=== PATIENT | male | born 1975 | race Caucasian/White ===

== ENCOUNTER 2017-11-19 12:06 | Observation (INO) ==
--- NOTE | 2017-11-19 12:29 | Emergency Department Note ---
Disposition Clinical Impression: Acute kidney injury, Nausea vomiting and diarrhea, Lightheaded Alcohol withdrawal Qualifiers: Complication of substance-induced condition: uncomplicated Qualified Code(s): F10.230 - Alcohol dependence with withdrawal, uncomplicated Disposition: Admitted As Inpatient Condition: Fair Referrals: Rebecca Rowley DO [Primary Care Provider] - Forms: ED Satisfaction Letter Time of Disposition: 13:32 Nausea/Vomiting/Diarrhea HPI - General Chief complaint: ED Nausea/Vomiting/Diarrhea Stated complaint: Vomiting Time Seen by Provider: 11/19/17 12:20 Source: patient Mode of arrival: ambulatory Limitations: no limitations Nursing Notes Reviewed: Yes Vital Signs Reviewed: Yes - History of Present Illness HPI Narrative: Patient reports nonbloody nausea, vomiting, diarrhea for the past 3 weeks. This started after he abruptly ceased from drinking alcohol. Previously he had drank 1-2 cases of beer daily. He now feels lightheaded, dizzy, near syncopal over the past several days. He admits to snorting a line of methamphetamine and cocaine several days ago. He denies fevers, chest pain, abdominal pain. No recent antibiotic use. He did have recent surgery on his right upper extremity for a tendon injury. - Related Data Home Medications Medication Instructions Recorded Confirmed Lisinopril 20 mg PO DAILY 03/18/15 11/09/17 Claritin 10 mg PO DAILY 04/26/17 11/09/17 Omeprazole 20 mg PO DAILY 04/26/17 11/09/17 Acetaminophen [Tylenol Arthritis] 1 tab PO PRN PRN 11/09/17 11/09/17 Cyclobenzaprine [Flexeril] 5 mg PO PRN PRN 11/09/17 11/09/17 Diclofenac Sodium [Voltaren] 1 tab PO BID 11/09/17 11/09/17 Gabapentin [Neurontin] 1 cap PO TID 11/09/17 11/09/17 Allergies Allergy/AdvReac Type Severity Reaction Status Date / Time morphine Allergy Anaphylaxis Verified 11/19/17 12:10 aspirin [ASA] AdvReac See Verified 11/19/17 12:10 Comments All systems ED: reviewed and negative except as stated. Constitutional: Reports: as per HPI Eyes: Reports: as per HPI ENT ED: Reports: as per HPI Cardiovascular: Reports: other (dizzy, lightheaded) Respiratory: Reports: as per HPI Gastrointestinal: Reports: nausea, vomiting, diarrhea Genitourinary: Reports: as per HPI Musculoskeletal: Reports: as per HPI Integumentary: Reports: as per HPI Neurological: Reports: as per HPI Psychiatric: Reports: as per HPI Endocrine: Reports: as per HPI Hematological/Lymphatic: Reports: as per HPI Allergic/Immunologic: Reports: as per HPI Past Medical History - Past Medical History Source: patient Medical history: Reports: arthritis, GERD, hypertension Surgical history: Reports: cholecystectomy, herniorrhaphy, other Psychiatric history: Reports: no psych history - Social History Smoking Status: Never smoker Smokeless Tobacco Status: No Alcohol use: Reports: occasionally, heavy Drug use: Reports: cocaine, methamphetamine Physical Exam Talkative, in no apparent distress - General Limitations: no limitations General appearance: alert, in no apparent distress - Head Head exam: atraumatic - Eye Eye exam: Present: normal appearance - ENT ENT exam: normal exam - Neck Neck exam: Present: normal inspection, full ROM - Chest Chest inspection: Present: normal inspection, symmetric chest wall rise - Respiratory Respiratory exam: Present: normal lung sounds bilaterally - Cardiovascular Cardiovascular exam: Present: normal rhythm, tachycardia, normal heart sounds - Abdominal Exam Abdominal exam: Present: soft, Non-Tender, normal bowel sounds - Rectal Exam Rectal exam: Present: deferred - Extremities Exam Extremities exam: Present: other (Right upper extremity in sling. Distal right upper extremity in cast) - Neurological Exam Neurological exam: Present: alert, oriented X3, CN II-XII intact - Psychiatric Psychiatric exam: Present: normal affect, normal mood - Skin Skin exam: Present: warm, dry, intact Course Course Narrative: Patient presents with nausea vomiting and diarrhea 3 weeks duration that coincided in onset when he stopped drinking beer heavily. He also lightheaded and dizzy. She has a benign exam. No abdominal tenderness. I am concerned about subacute alcohol withdrawal. Laboratory investigation initiated - Reevaluation(s) Reevaluation #1: The patient has an acute kidney injury and leukocytosis. I have provided IV hydration. I will request admission to the medicine service Vital Signs Temperature 98.4 F 11/19/17 12:10 Pulse Rate 127 11/19/17 12:10 Respiratory Rate 20 11/19/17 12:10 Blood Pressure 128/72 11/19/17 12:10 O2 Sat by Pulse Oximetry 95 11/19/17 12:10 Temperature 98.4 F 11/19/17 12:20 Pulse Rate 127 11/19/17 12:20 Respiratory Rate 20 11/19/17 12:20 Blood Pressure 128/72 11/19/17 12:20 O2 Sat by Pulse Oximetry 95 11/19/17 12:20 Oxygen Delivery Oxygen Delivery Room Air Nausea/Vomiting/Diarrhea - Lab Data Lab results reviewed: Yes I reviewed the patient's lab results. Result diagrams: 11/19/17 12:33 11/19/17 12:33 Lab Results 11/19/17 11/19/17 11/19/17 Range/Units 12:33 12:33 12:33 WBC 18.5 H (4.3-11.1) K/mcL RBC 5.73 H (4.19-5.50) M/mcL Hgb 17.1 H (12.9-16.9) g/dL Hct 49.4 (37.5-50.1) % MCV 86.2 (83.0-100.0) fL MCH 29.8 (28.0-33.3) pg MCHC 34.6 (31.6-35.5) g/dL RDW 14.1 (11.5-14.5) % Plt Count 426 H (140-400) K/mcL MPV 9.7 (9.4-12.4) fL Immature Gran % 0.9 (0-4) % Seg Neutrophils % 64.3 % Lymphocytes % 20.8 % Monocytes % 13.3 % Eosinophils % 0.3 % Basophils % 0.4 % Neutrophils # 11.9 H (1.6-8.9) K/mcL Lymphocytes # 3.9 (0.6-4.6) K/mcL Monocytes # 2.5 H (0.0-1.3) K/mcL Eosinophils # 0.1 (0.0-0.6) K/mcL Basophils # 0.1 (0.0-0.2) K/mcL Sodium 136 (136-145) mEq/L Potassium 4.4 (3.5-5.1) mEq/L Chloride 101 (98-107) mEq/L Carbon Dioxide 21 L (23-29) mEq/L BUN 26 H (6-20) mg/dL Creatinine 1.60 H (0.70-1.30) mg/dL Est GFR ( Amer) 58 L (> 60) Est GFR (Non-Af Amer) 48 L (> 60) BUN/Creatinine Ratio 16 (6-26) Glucose 114 H (70-105) mg/dL Calculated Osmolality 288 (280-300) Calcium 10.5 H (8.6-10.3) mg/dL Magnesium 2.4 (1.6-2.6) mg/dL Total Bilirubin 1.5 H (0.3-1.0) mg/dL AST 23 (13-39) Units/L ALT 56 H (7-52) Units/L Alkaline Phosphatase 20 L (34-104) Units/L Serum Total Protein 8.2 (6.4-8.9) g/dL Albumin 5.0 (3.5-5.7) g/dL Globulin 3.2 (2.4-3.5) g/dL Albumin/Globulin Ratio 1.6 (1.1-2.2) TSH 3.424 (0.340-5.600) mcIU/mL Ur Drug Screen Interp Ethyl Alcohol < 10 (Less than 10) mg/dL 11/19/17 Range/Units 13:05 WBC (4.3-11.1) K/mcL RBC (4.19-5.50) M/mcL Hgb (12.9-16.9) g/dL Hct (37.5-50.1) % MCV (83.0-100.0) fL MCH (28.0-33.3) pg MCHC (31.6-35.5) g/dL RDW (11.5-14.5) % Plt Count (140-400) K/mcL MPV (9.4-12.4) fL Immature Gran % (0-4) % Seg Neutrophils % % Lymphocytes % % Monocytes % % Eosinophils % % Basophils % % Neutrophils # (1.6-8.9) K/mcL Lymphocytes # (0.6-4.6) K/mcL Monocytes # (0.0-1.3) K/mcL Eosinophils # (0.0-0.6) K/mcL Basophils # (0.0-0.2) K/mcL Sodium (136-145) mEq/L Potassium (3.5-5.1) mEq/L Chloride (98-107) mEq/L Carbon Dioxide (23-29) mEq/L BUN (6-20) mg/dL Creatinine (0.70-1.30) mg/dL Est GFR ( Amer) (> 60) Est GFR (Non-Af Amer) (> 60) BUN/Creatinine Ratio (6-26) Glucose (70-105) mg/dL Calculated Osmolality (280-300) Calcium (8.6-10.3) mg/dL Magnesium (1.6-2.6) mg/dL Total Bilirubin (0.3-1.0) mg/dL AST (13-39) Units/L ALT (7-52) Units/L Alkaline Phosphatase (34-104) Units/L Serum Total Protein (6.4-8.9) g/dL Albumin (3.5-5.7) g/dL Globulin (2.4-3.5) g/dL Albumin/Globulin Ratio (1.1-2.2) TSH (0.340-5.600) mcIU/mL Ur Drug Screen Interp See Below Ethyl Alcohol (Less than 10) mg/dL - EKG Data EKG attestation: Yes I reviewed and interpreted this EKG. EKG results narrative: Normal sinus rhythm rate 99 NE 134 QRS 79 QT/QTC 312/368. No acute ST segment elevation
[2017-11-19] MEDS ORDERED: Thiamine (B-1) 100 MG, Folic Acid 1 MG, MVI, adult with vitamin K 10 ML in 0.9 % Sodi... IVPB SCH (12:30)
[2017-11-19 12:47] LABS: Basophils # 0.1 K/mcL (0.0-0.2); Basophils % 0.4 %; Eosinophils # 0.1 K/mcL (0.0-0.6); Eosinophils % 0.3 %; Hematocrit 49.4 % (37.5-50.1); Hemoglobin 17.1 g/dL (12.9-16.9); Immature Granulocytes % 0.9 % (0-4); Lymphocytes # 3.9 K/mcL (0.6-4.6); Lymphocytes % 20.8 %; Mean Corpuscular HGB Conc 34.6 g/dL (31.6-35.5); Mean Corpuscular Hemoglobin 29.8 pg (28.0-33.3); Mean Corpuscular Volume 86.2 fL (83.0-100.0); Mean Platelet Volume 9.7 fL (9.4-12.4); Monocytes # 2.5 K/mcL (0.0-1.3); Monocytes % 13.3 %; Neutrophils # 11.9 K/mcL (1.6-8.9); Platelet Count 426 K/mcL (140-400); Red Blood Count 5.73 M/mcL (4.19-5.50); Red Cell Distribution Width 14.1 % (11.5-14.5); Segmented Neutrophils % 64.3 %
[2017-11-19 13:07] LABS: Alanine Aminotransferase 56 Units/L (7-52); Albumin/Globulin Ratio 1.6 (1.1-2.2); Alkaline Phosphatase 20 Units/L (34-104); Aspartate Amino Transferase 23 Units/L (13-39); BUN/Creatinine Ratio 16 (6-26); Bilirubin,Total 1.5 mg/dL (0.3-1.0); Blood Urea Nitrogen 26 mg/dL (6-20); Calcium 10.5 mg/dL (8.6-10.3); Carbon Dioxide 21 mEq/L (23-29); Chloride 101 mEq/L (98-107); Ethanol < 10 mg/dL (Less than 10); Globulin 3.2 g/dL (2.4-3.5); Glucose 114 mg/dL (70-105); Osmolality,Calculated 288 (280-300); Potassium 4.4 mEq/L (3.5-5.1); Sodium 136 mEq/L (136-145); Total Protein 8.2 g/dL (6.4-8.9); eGFR For African Americans 58 (> 60); eGFR For Non-African Americans 48 (> 60)
[2017-11-19 13:19] LABS: Thyroid Stimulating Hormone 3.424 mcIU/mL (0.340-5.600)
[2017-11-19 13:23] LABS: Bilirubin,Urine Small (Negative); Blood,Urine Negative (Negative); Clarity,Urine Clear (Clear); Color,Urine Dark Yellow (Yellow); Glucose,Urine (UA) Normal (Normal); Ketones,Urine 15 mg/dL (Negative); Leukocyte Esterase,Urine Negative (Negative); Nitrite,Urine Negative (Negative); PH,Urine 6.5 pH Units (5.0-8.0); Protein,Urine 100 mg/dL (Neg-Trace); Specific Gravity,Urine 1.021 (1.010-1.025); Urobilinogen,Urine Normal (Normal)
[2017-11-19 13:25] LABS: Bacteria,Urine None Seen per hpf (None-Few); Squamous Epithelial Cell,Urine Many per lpf (None-Few)
[2017-11-19] MEDS ORDERED: 0.9 % Sodium Chloride 1,000 ML IVC ONE (13:30)
[2017-11-19 13:39] LABS: Amphetamine Screen,Urine Positive ng/mL (Cutoff=1000); Barbiturate Screen,Urine Negative ng/mL (Cutoff=200); Benzodiazepines Screen,Urine Negative ng/mL (Cutoff=200); Cannabinoid Screen,Urine Negative ng/mL (Cutoff = 50); Cocaine Screen,Urine Negative ng/mL (Cutoff= 300); Opiate Screen,Urine Negative ng/mL (Cutoff=300); Phencyclidine Screen,Urine Negative ng/mL (Cutoff=25)
[2017-11-19 13:56] LABS: Creatine Kinase 203 Units/L (30-223)
[2017-11-19] MEDS ORDERED: Naloxone 0.4 MG/ML INJ IVP PRN (14:03)
--- NOTE | 2017-11-19 14:53 | Internal Med History&Physical ---
Date of Encounter: 11/19/17 Time of Encounter: 14:30 Internal Medicine - H&P: HPI Chief complaint: Nausea, vomiting Admitted From: Emergency Dept Plans for Post Hospital Care: Home History of present illness: Mr. Oshea is a 42 year old male patient with history of hypertension, gout, prior history of alcohol abuse who quit drinking 3 weeks back presented to the ER with complaints of nausea and vomiting. Symptoms have been going on for 2-3 weeks now ever since he quit drinking alcohol. She denies any fevers or chills. Does have mild epigastric discomfort. He is also been having diarrhea. No fever or chills reported. No hematemesis or melena. He does have lightheadedness and has been seeing black spots this morning. Past Med Surg Social Fam HX - Past Medical History Attestation: Yes The following information was validated with the patient. Source: patient Medical history: arthritis, GERD, hypertension Additional medical history: gout Psychiatric history: no psych history - Past Surgical History Surgical History: cholecystectomy, herniorrhaphy, other Additional surgical history: tonsillectomy. Right Arm Surgery - Social History Smoking Status: Never smoker Smokeless Tobacco Status: No Alcohol use: occasionally, heavy Drug use: cocaine, methamphetamine Internal Medicine - H&P: Meds Allopurinol [Zyloprim 100 MG] 100 mg PO TID 11/19/17 [History] Capsaicin [Arthritis Pain Relief] 1 appl TP DAILY PRN 11/19/17 [History] Cyclobenzaprine HCl 5 mg PO TID PRN 11/19/17 [History] Diclofenac Sodium [Voltaren] 75 mg PO BID 11/19/17 [History] Gabapentin [Neurontin] 300 mg PO TID 11/19/17 [History] 3 Allergy/AdvReac Type Severity Reaction Status Date / Time morphine Allergy Anaphylaxis Verified 11/19/17 13:51 aspirin [ASA] AdvReac See Verified 11/19/17 12:10 Comments All Systems PM: A 10-system review of systems was performed and is negative for pertinent findings except as documented above in the HPI. - Constitutional Constitutional: no chills, no fever(s), no night sweats - EENT Eyes: no change in vision, no discharge, no pain, no photophobia Ears: no ear discharge, no ear pain, no tinnitus Nose, mouth and throat: no dysphagia, no nasal discharge, no neck pain, no sore throat - Cardiovascular Cardiovascular ROS IM: lightheadedness, no chest pain, no diaphoresis, no dyspnea, no palpitations, no syncope - Respiratory Respiratory: no cough, no dyspnea, no wheezing, no excessive phlegm production - Gastrointestinal Gastrointestinal: abdominal pain, nausea, vomiting - Musculoskeletal Musculoskeletal ROS IM: no numbness, no tingling - Integumentary Integumentary IM: no rash, no unusual bruising - Neurological Neurological ROS: no confusion, no convulsions, no focal weakness, no numbness, no tingling, no tremor(s) - Constitutional Vitals: Temp Pulse Resp BP Pulse Ox 98.4 F 127 20 128/72 95 11/19/17 12:20 11/19/17 12:20 11/19/17 12:20 11/19/17 12:20 11/19/17 12:20 General appearance: Present: cooperative, mild distress, A&O X 3, answers questions appropriately - Neck Neck exam general surgery: Present: supple, trachea midline. Absent: lymphadenopathy - Respiratory Respiratory exam: Present: CTAB. Absent: accessory muscle use, rales, rhonchi, wheezes - Cardiovascular Cardiovascular exam: Present: RRR, +S1, +S2. Absent: diastolic murmur, gallop, rubs, systolic murmur - GI/Abdominal GI/Abdominal exam: Present: normal bowel sounds, soft, tenderness (Epigastric), no peritoneal signs. Absent: distended - Extremities Exam Extremities exam: Present: warm, radial pulses palpable and symmetrical. Absent : calf tenderness, cyanotic, pedal edema - Neurological Exam Neurological exam: Present: CN II-XII intact, oriented X3, no focal deficits. Absent: facial droop, speech deficit - Psychiatric Psychiatric exam: Present: anxious Additional comments: Patient has pressured speech - Skin Skin exam: Present: dry, intact Internal Med - H&P Results - Labs CBC & Chem 7: 11/19/17 12:33 11/19/17 12:33 - Assessment and plan (1) Acute kidney injury Current Visit: Yes Status: Acute Assessment and plan: Patient with acute kidney injury. Likely related to prerenal losses due to nausea or vomiting and diarrhea. We will treat with IV fluids. Follow renal function closely. Patient was on diclofenac at home. Will stop this medication for now. Moderate risk for complications. Patient does have pressured speech. An urine drug screen positive for amphetamines. (2) History of alcohol abuse Current Visit: Yes Status: Acute Assessment and plan: Patient with history of alcohol abuse. Quit drinking alcohol 3 weeks back. We will check phosphorus levels. Supportive care with thiamine and folic acid. (3) Nausea vomiting and diarrhea Current Visit: Yes Status: Acute Assessment and plan: Intractable nausea and vomiting along with diarrhea. Uncertain etiology. Could be related to alcoholic gastritis. Given the outbreak of hepatitis A in this area, we will check for hepatitis viral panel. Treat symptomatically with antiemetics. If symptoms do not improve, we will consult GI for possible upper GI endoscopy. - Time Spent With Patient Total time spent is greater than 50% in coordination of care (as documented) at patient's floor/unit and/or counseling patient:
[2017-11-19] MEDS ORDERED: Methyl Salicylate/Menthol 28 GM TUBE TP PRN (15:00)
[2017-11-19] MEDS ORDERED: Ondansetron 4 MG/2 ML VIAL IVP PRN (15:00)
[2017-11-19 15:50] LABS: Phosphorous 4.8 mg/dL (2.7-4.5)
[2017-11-19 16:08] LABS: Hepatitis A Antibody IgM Nonreactive (Nonreactive); Hepatitis B Core IgM Nonreactive (Nonreactive); Hepatitis B Surface Antigen Nonreactive (Nonreactive); Hepatitis C Virus Antibody Nonreactive (Nonreactive)
[2017-11-19] MEDS: Gabapentin 300 MG CAPSULE PO SCH ×2 (16:11→22:22)
[2017-11-19] MEDS: Pantoprazole 40 MG VIAL IVP SCH (16:11)
[2017-11-19] MEDS ORDERED: *HR* LORazepam 2 MG/ML VIAL IVP PRN ×3 (16:38)
[2017-11-19] MEDS: Ringers Solution, Lactated 1,000 ML IVC SCH (17:46)
[2017-11-19] MEDS: *HR* Heparin 5,000 UNIT/ML VIAL SQ SCH (17:51)
--- NOTE | 2017-11-19 19:06 | Orthopedics Progress Note ---
Date of Encounter: 11/19/17 Time of Encounter: 19:02 Subjective Principal diagnosis: Right wrist scapholunate ligament tear, carpal tunnel syndrome Interval history: Patient admitted for alcohol withdrawal symptoms It was reported the patient was having numbness in his right hand Patient reports no complaints currently Short arm thumb spica cast is fitting well, the cast was not too tight Minimal swelling of digits He has good motion of the fingers Sensation intact to tips of all digits with good capillary refill Postoperative day #10 status post a right wrist scapholunate ligament repair, and an endoscopic carpal tunnel release No intervention at this time Discussed with the patient to make sure to keep hand elevated to prevent swelling Continue moving fingers Follow-up in office next week with Arlene Rushing PA-C for a cast change Objective Vital signs: Vital Signs Temp Pulse Resp BP Pulse Ox 11/19/17 16:18 98 11/19/17 15:53 98.3 F 126 19 138/73 98 11/19/17 15:40 20 101/71 Intake and Output 11/19/17 11/19/17 11/19/17 07:59 15:59 23:59 Output Total 0 / 0 Balance 0 / 0 Output: Urine 0 / 0 Other: Weight 92 kg Blood Glucose* 101 Patient Weight 11/19/17 23:59 Weight 92 kg - Labs CBC & BMP: 11/19/17 12:33 11/19/17 12:33 Labs: Abnormal lab results WBC 18.5 K/mcL (4.3-11.1) H 11/19/17 12:33 RBC 5.73 M/mcL (4.19-5.50) H 11/19/17 12:33 Hgb 17.1 g/dL (12.9-16.9) H 11/19/17 12:33 Plt Count 426 K/mcL (140-400) H 11/19/17 12:33 Neutrophils # 11.9 K/mcL (1.6-8.9) H 11/19/17 12:33 Monocytes # 2.5 K/mcL (0.0-1.3) H 11/19/17 12:33 Carbon Dioxide 21 mEq/L (23-29) L 11/19/17 12:33 BUN 26 mg/dL (6-20) H 11/19/17 12:33 Creatinine 1.60 mg/dL (0.70-1.30) H 11/19/17 12:33 Est GFR ( Amer) 58 (> 60) L 11/19/17 12:33 Est GFR (Non-Af Amer) 48 (> 60) L 11/19/17 12:33 Glucose 114 mg/dL (70-105) H 11/19/17 12:33 Calcium 10.5 mg/dL (8.6-10.3) H 11/19/17 12:33 Phosphorus 4.8 mg/dL (2.7-4.5) H 11/19/17 12:33 Total Bilirubin 1.5 mg/dL (0.3-1.0) H 11/19/17 12:33 ALT 56 Units/L (7-52) H 11/19/17 12:33 Alkaline Phosphatase 20 Units/L (34-104) L 11/19/17 12:33 Urine Protein 100 mg/dL (Neg-Trace) H 11/19/17 13:05 Urine Ketones 15 mg/dL (Negative) H 11/19/17 13:05 Urine Bilirubin Small (Negative) H 11/19/17 13:05 Urine Microscopic RBC 5-15 per hpf (0-3) H 11/19/17 13:05 Urine Microscopic WBC 5-15 per hpf (0-3) H 11/19/17 13:05 Ur Squamous Epith Cells Many per lpf (None-Few) H 11/19/17 13:05 Ur Amphetamines Screen Positive ng/mL ([id number]) H 11/19/17 13:05 Consult Discharge Plan - Plan Referrals: Rebecca Rowley DO [Primary Care Provider] -
[2017-11-20] MEDS: Ringers Solution, Lactated 1,000 ML IVC SCH (00:09)
[2017-11-20 05:56] LABS: Basophils % 0.3 %; Eosinophils # 0.1 K/mcL (0.0-0.6); Hematocrit 41.4 % (37.5-50.1); Immature Granulocytes % 0.5 % (0-4); Lymphocytes # 2.4 K/mcL (0.6-4.6); Lymphocytes % 24.6 %; Mean Corpuscular HGB Conc 33.1 g/dL (31.6-35.5); Mean Corpuscular Volume 87.7 fL (83.0-100.0); Mean Platelet Volume 9.8 fL (9.4-12.4); Neutrophils # 6.1 K/mcL (1.6-8.9); Platelet Count 278 K/mcL (140-400); Red Blood Count 4.72 M/mcL (4.19-5.50); Segmented Neutrophils % 63.6 %
[2017-11-20 05:57] LABS: Hemoglobin 13.7 g/dL (12.9-16.9)
[2017-11-20 06:15] LABS: BUN/Creatinine Ratio 23 (6-26); Blood Urea Nitrogen 21 mg/dL (6-20); Calcium 9.3 mg/dL (8.6-10.3); Carbon Dioxide 24 mEq/L (23-29); Chloride 104 mEq/L (98-107); Glucose 97 mg/dL (70-105); Osmolality,Calculated 287 (280-300); Potassium 4.4 mEq/L (3.5-5.1); Sodium 137 mEq/L (136-145); eGFR For African Americans > 60 (> 60); eGFR For Non-African Americans > 60 (> 60)
[2017-11-20] MEDS: *HR* Heparin 5,000 UNIT/ML VIAL SQ SCH (06:32)
[2017-11-20 06:53] VITALS: BP 104/66
[2017-11-20] MEDS: Gabapentin 300 MG CAPSULE PO SCH (07:42)
[2017-11-20] MEDS: Pantoprazole 40 MG VIAL IVP SCH (07:43)
--- NOTE | 2017-11-20 09:47 | Discharge Summary ---
- NOTES TO OUTPATIENT PROVIDER Notes to Outpatient Provider: Placed on observation for LEXY due to gastroenteritis which has resolved, no change in medications, follow up with PCP. Last alcohol intake was 3 weeks ago. Follow up with PCP and Orthopedics Orders not resulted at time of discharge: Pending orders 11/19/17 16:54 GI Panel,Stool [MOLMIC] Routine Date of Encounter: 11/20/17 Time of Encounter: 09:45 - Discharge Diagnosis (1) Acute kidney injury Priority: Primary Status: Resolved (2) Nausea vomiting and diarrhea Priority: Primary Status: Resolved (3) History of alcohol abuse Priority: Secondary Status: Chronic (4) Substance abuse Priority: Primary Status: Suspected Hospital course: Mr. Oshea is a 42 year old male with PMH of HTN , alcohol abuse who quit 3 weeks prior to presentation and complained of n/v/d-possibly viral enteritis, as well as poor oral intake prior to presentation. No fever or chills reported. No hematemesis or melena, no neurologic symptoms. Work up in ER remarkable for leukocytosis, polycythemia and LEXY-signs of dehydration, Utox with amphetamines. Patient was managed supportively with IVF and antiemetics On evaluation this mrn, he reports he has not had one episode for diarrhea since arrival to the hoospital, he also denies any more n/v. His CBC and Chem have returned to normal. Orthopedics was consulted for patient's R hand PICA cast and there were no new recommendations. Patient was taking NSAIDs at home and educated to discontinue this, encourage liberal fluid intake. Follow up with PCP and Orthopedics Discharge discussed with: patient, nurse - Time Spent with Patient Total time spent providing and/or coordinating discharge services: Less than 30 minutes - Discharge Medications Home Medications: Allopurinol [Zyloprim 100 MG] 100 mg PO TID 11/19/17 [History] Capsaicin [Arthritis Pain Relief] 1 appl TP DAILY PRN 11/19/17 [History] Cyclobenzaprine HCl 5 mg PO TID PRN 11/19/17 [History] Diclofenac Sodium [Voltaren] 75 mg PO BID 11/19/17 [History] Gabapentin [Neurontin] 300 mg PO TID 11/19/17 [History] Lisinopril 20 mg PO DAILY 11/20/17 [History] Allergies/Adverse Reactions: 3 Allergy/AdvReac Type Severity Reaction Status Date / Time morphine Allergy Anaphylaxis Verified 11/19/17 13:51 aspirin [ASA] AdvReac See Verified 11/19/17 12:10 Comments Date of admission: 11/19/17 14:33 Primary care physician: Freddy Magaña Consults: 11/19/17 16:00 Consult to Nutrition [CONS] Routine Comment: Consulting Provider: NUTRITION Reason for Dietary Consult: MST Score 11/19/17 16:27 Consult to Orthopedic Surgery [CONS] Routine Consulting Provider: Orthoped[facility] Reason for Consult: Right hand numbness in splint Time Notified: 16:28 Call Completed: Yes 11/19/17 16:38 Consult to Assistant Professor Of [employer] [CONS] Routine Reason for SW Consult: alcohol/drug counseling Discharging clinician: Ulises Lorenzo Anticipated date of discharge: 11/20/17 - Constitutional Vitals: Temp Pulse Resp BP Pulse Ox 97.5 F L 82 15 104/66 97 11/20/17 06:48 11/20/17 06:48 11/20/17 06:48 11/20/17 06:48 11/20/17 06:48 General appearance: Present: cooperative, A&O X 3, pleasant, no acute distress, answers questions appropriately - Head Head exam: Present: atraumatic, normocephalic - Eye Eye exam: Present: PERRL, conjuntiva pink, sclera anicteric Pupils: Present: PERRL - Neck Neck exam general surgery: Present: supple, trachea midline. Absent: lymphadenopathy - Respiratory Respiratory exam: Present: CTAB. Absent: accessory muscle use, rales, rhonchi, wheezes - Cardiovascular Cardiovascular exam: Present: RRR, +S1, +S2. Absent: diastolic murmur, gallop, rubs, systolic murmur - GI/Abdominal GI/Abdominal exam: Present: normal bowel sounds, soft, no peritoneal signs. Absent: distended, tenderness - Extremities Exam Extremities exam: Present: warm, radial pulses palpable and symmetrical. Absent : calf tenderness, cyanotic, pedal edema - Neurological Exam Neurological exam: Present: alert, CN II-XII intact, oriented X3, no focal deficits. Absent: pronater drift, facial droop, speech deficit - Skin Skin exam: Present: dry, intact - Patient Status Disposition: Home, Self-Care Condition: Good Functional capacity at discharge: independent ambulation Overall status at discharge: patient is back to baseline - Discharge Instructions Follow Up With: Rebecca Rowley DO [Primary Care Provider] - - Diet and Activity Activity: resume usual activities as tolerated Diet: regular diet
--- NOTE | 2017-11-22 06:53 | Electrocardiograph Report ---
[place] [address] [facility] Test Date: 2017-11-19 Pat Name: Tee Oshea Department: 104 Room: 2A42 Gender: M Nursing Resident: ANDREAS : 1975 Requested By: Manish Jolly Order Number: [id number] Reading MD: Tk Lane Measurements Intervals [place] Rate: 99 P: 49 CT: 134 QRS: 5 QRSD: 79 T: 64 QT: 312 QTc: 368 Interpretive Statements SINUS RHYTHM WARNING: DATA QUALITY MAY AFFECT INTERPRETATION Electronically Signed On 11-22-2017 6:51:[address]
[2017-11-22] MEDS ORDERED: Folic Acid 1 MG TABLET PO SCH (09:00)
[2017-11-22] MEDS ORDERED: Thiamine (B-1) 100 MG TABLET PO SCH (09:00)
== END 2017-11-20 10:16 | disposition home or self-care (01) ==
LOC: 2ANU 12:06 → EMEROO 12:06 → SUATTDRO 14:33 → 2ANU 15:41
PROVIDERS: ADMIT Internal Medicine; ATTEND Internal Medicine

== ENCOUNTER 2020-03-30 01:46 | Inpatient (IN) ==
[2020-03-30] MEDS ORDERED: 0.9 % Sodium Chloride 1,000 ML IVC ONE (02:26)
[2020-03-30 03:09] LABS: Basophils % 0.3 %; Eosinophils # 0.2 K/mcL (0.0-0.6); Eosinophils % 1.2 %; Hematocrit 36.1 % (37.5-50.1); Hemoglobin 11.9 g/dL (12.9-16.9); Immature Granulocytes % 0.5 % (0-4); Lymphocytes # 2.1 K/mcL (0.6-4.6); Lymphocytes % 17.1 %; Mean Corpuscular Hemoglobin 29.1 pg (28.0-33.3); Mean Corpuscular Volume 88.3 fL (83.0-100.0); Mean Platelet Volume 10.1 fL (9.4-12.4); Monocytes # 0.8 K/mcL (0.0-1.3); Monocytes % 6.9 %; Platelet Count 238 K/mcL (140-400); Red Blood Count 4.09 M/mcL (4.19-5.50); Red Cell Distribution Width 13.1 % (11.5-14.5); White Blood Count 12.1 K/mcL (4.3-11.1)
[2020-03-30 03:11] LABS: INR 1.1; Prothrombin Time 12.9 Seconds (9.4-12.1)
[2020-03-30 03:13] LABS: Activated Partial Thrombo Time 27.9 Seconds (26.0-36.0)
[2020-03-30 03:19] LABS: Acetaminophen < 10 mcg/mL (10-20); Alanine Aminotransferase 43 Units/L (7-52); Albumin 4.2 g/dL (3.5-5.7); Albumin/Globulin Ratio 1.4 (1.1-2.2); Alkaline Phosphatase 20 Units/L (34-104); Aspartate Amino Transferase 36 Units/L (13-39); BUN/Creatinine Ratio 8 (6-26); Bilirubin,Direct 0.1 mg/dL (0.0-0.2); Bilirubin,Indirect 0.4 mg/dL (0.0-1.0); Bilirubin,Total 0.5 mg/dL (0.3-1.0); Blood Urea Nitrogen 19 mg/dL (6-20); Calcium 9.1 mg/dL (8.6-10.3); Carbon Dioxide 23 mEq/L (23-29); Chloride 96 mEq/L (98-107); Chol/HDL Ratio 8.2 (0-4.9); Cholesterol 204 mg/dL (< 200); Ethanol < 10 mg/dL (Less than 10); Globulin 2.9 g/dL (2.4-3.5); Glucose 127 mg/dL (70-105); HDL Cholesterol 25 mg/dL (40-59); LDL Cholesterol,Calculated 129 mg/dL (< 100); Osmolality,Calculated 280 (280-300); Potassium 3.3 mEq/L (3.5-5.1); Salicylate < 2.5 mg/dL (15.0-30.0); Sodium 133 mEq/L (136-145); Total Protein 7.1 g/dL (6.4-8.9); Triglycerides 249 mg/dL (< 150); Troponin I < 0.03 ng/mL (< 0.04); eGFR For African Americans 35 (> 60); eGFR For Non-African Americans 29 (> 60)
[2020-03-30] MEDS ORDERED: Lidocaine/EPI 1:100k 1% 30 ML VIAL INFILT ONE (03:26)
[2020-03-30 05:00] LABS: Estimated Average Glucose 171 mg/dl
[2020-03-30 05:36] LABS: Bilirubin,Urine Negative (Negative); Blood,Urine Negative (Negative); Clarity,Urine Clear (Clear); Color,Urine Colorless (Yellow); Glucose,Urine (UA) Normal (Normal); Ketones,Urine Negative (Negative); Leukocyte Esterase,Urine Negative (Negative); Nitrite,Urine Negative (Negative); Protein,Urine Negative (Neg-Trace); Specific Gravity,Urine 1.005 (1.010-1.025); Urobilinogen,Urine Normal (Normal)
[2020-03-30 05:49] LABS: Amphetamine Screen,Urine Positive ng/mL (Cutoff=1000); Barbiturate Screen,Urine Negative ng/mL (Cutoff=200); Benzodiazepines Screen,Urine Negative ng/mL (Cutoff=200); Cannabinoid Screen,Urine Negative ng/mL (Cutoff = 50); Cocaine Screen,Urine Negative ng/mL (Cutoff= 300); Opiate Screen,Urine Negative ng/mL (Cutoff=300); Phencyclidine Screen,Urine Negative ng/mL (Cutoff=25)
[2020-03-30 06:43] LABS: Adenovirus Not Detected (Not Detect); Bordetella Pertussis Not Detected (Not Detect); Chlamydophila pneumoniae Not Detected (Not Detect); Coronavirus 229E Not Detected (Not Detect); Coronavirus HKU1 Not Detected (Not Detect); Coronavirus NL63 Not Detected (Not Detect); Coronavirus OC43 Not Detected (Not Detect); Human Metapneumovirus Not Detected (Not Detect); Human Rhinovirus/Enterovirus Not Detected (Not Detect); Influenza A Subtype 2009 H1 Not Detected (Not Detect); Influenza B Not Detected (Not Detect); Mycoplasma pneumoniae Not Detected (Not Detect); Parainfluenza Virus 1 Not Detected (Not Detect); Parainfluenza Virus 2 Not Detected (Not Detect); Parainfluenza Virus 3 Not Detected (Not Detect); Parainfluenza Virus 4 Not Detected (Not Detect); Respiratory Syncytial Virus Not Detected (Not Detect); SARS-CoV-2 Not Detected (Not Detect)
[2020-03-30] MEDS ORDERED: 0.9 % Sodium Chloride 1,000 ML IV ONE (07:25)
[2020-03-30] MEDS ORDERED: Naloxone 0.4 MG/ML INJ IVP PRN (08:26)
[2020-03-30] MEDS ORDERED: Ondansetron ODT 4 MG TAB.RAPDIS SL PRN (08:26)
[2020-03-30] MEDS ORDERED: Acetaminophen 325 MG TABLET PO PRN (08:30)
[2020-03-30 08:51] LABS: Magnesium 1.8 mg/dL (1.6-2.6); Phosphorous 5.9 mg/dL (2.7-4.5)
[2020-03-30] MEDS: 0.9 % Sodium Chloride 1,000 ML IVC SCH ×2 (10:28→13:44)
[2020-03-30] MEDS ORDERED: Ibuprofen 800 MG TABLET PO PRN (11:43)
[2020-03-30] MEDS ORDERED: *HR* LORazepam 2 MG/ML VIAL IVP PRN ×3 (11:46)
[2020-03-30] MEDS: Thiamine (B-1) 100 MG TABLET PO SCH (12:38)
[2020-03-30] MEDS: Folic Acid 1 MG TABLET PO SCH (12:38)
[2020-03-30] MEDS: Vitamin B Complex/Vit C/Vit E 1 EACH TABLET PO SCH (12:38)
[2020-03-30] MEDS: allopurinoL 100 MG TABLET PO SCH ×2 (16:03→21:46)
[2020-03-30] MEDS: *HR* Heparin 5,000 UNIT/ML VIAL SQ SCH (17:47)
[2020-03-31 02:56] LABS: Basophils % 0.4 %; Eosinophils # 0.2 K/mcL (0.0-0.6); Eosinophils % 2.4 %; Hematocrit 35.1 % (37.5-50.1); Hemoglobin 11.5 g/dL (12.9-16.9); Immature Granulocytes % 0.4 % (0-4); Lymphocytes # 2.1 K/mcL (0.6-4.6); Lymphocytes % 27.2 %; Mean Corpuscular HGB Conc 32.8 g/dL (31.6-35.5); Mean Corpuscular Volume 91.6 fL (83.0-100.0); Mean Platelet Volume 10.4 fL (9.4-12.4); Monocytes # 0.7 K/mcL (0.0-1.3); Monocytes % 8.8 %; Neutrophils # 4.7 K/mcL (1.6-8.9); Platelet Count 214 K/mcL (140-400); Red Blood Count 3.83 M/mcL (4.19-5.50); Red Cell Distribution Width 13.2 % (11.5-14.5); Segmented Neutrophils % 60.8 %; White Blood Count 7.6 K/mcL (4.3-11.1)
[2020-03-31 03:12] LABS: BUN/Creatinine Ratio 10 (6-26); Blood Urea Nitrogen 8 mg/dL (6-20); Calcium 8.8 mg/dL (8.6-10.3); Carbon Dioxide 23 mEq/L (23-29); Chloride 107 mEq/L (98-107); Glucose 101 mg/dL (70-105); Osmolality,Calculated 286 (280-300); Potassium 3.6 mEq/L (3.5-5.1); Sodium 139 mEq/L (136-145); eGFR For African Americans > 60 (> 60); eGFR For Non-African Americans > 60 (> 60)
[2020-03-31] MEDS: *HR* Heparin 5,000 UNIT/ML VIAL SQ SCH ×2 (05:36→18:15)
[2020-03-31] MEDS: Folic Acid 1 MG TABLET PO SCH (08:33)
[2020-03-31] MEDS: Vitamin B Complex/Vit C/Vit E 1 EACH TABLET PO SCH (08:34)
[2020-03-31] MEDS: allopurinoL 100 MG TABLET PO SCH ×3 (08:34→21:45)
[2020-03-31] MEDS: Thiamine (B-1) 100 MG TABLET PO SCH (08:34)
[2020-03-31] MEDS: lisinopriL 20 MG TABLET PO SCH (09:54)
[2020-03-31] MEDS: 0.9 % Sodium Chloride 1,000 ML IVC SCH (15:55)
[2020-03-31] MEDS ORDERED: Acetaminophen 325 MG TABLET PO SCH (18:00)
[2020-03-31] MEDS ORDERED: Acetaminophen 325 MG TABLET PO PRN (18:12)
[2020-04-01] MEDS: 0.9 % Sodium Chloride 1,000 ML IVC SCH (02:47)
[2020-04-01 03:48] LABS: BUN/Creatinine Ratio 16 (6-26); Blood Urea Nitrogen 11 mg/dL (6-20); Calcium 8.9 mg/dL (8.6-10.3); Carbon Dioxide 26 mEq/L (23-29); Chloride 102 mEq/L (98-107); Glucose 84 mg/dL (70-105); Osmolality,Calculated 283 (280-300); Potassium 3.4 mEq/L (3.5-5.1); Sodium 137 mEq/L (136-145); eGFR For African Americans > 60 (> 60); eGFR For Non-African Americans > 60 (> 60)
[2020-04-01] MEDS: *HR* Heparin 5,000 UNIT/ML VIAL SQ SCH (05:39)
[2020-04-01] MEDS: lisinopriL 20 MG TABLET PO SCH (08:12)
[2020-04-01] MEDS: Vitamin B Complex/Vit C/Vit E 1 EACH TABLET PO SCH (08:12)
[2020-04-01] MEDS: Folic Acid 1 MG TABLET PO SCH (08:12)
[2020-04-01] MEDS: Thiamine (B-1) 100 MG TABLET PO SCH (08:12)
[2020-04-01] MEDS: allopurinoL 100 MG TABLET PO SCH (08:12)
[2020-04-01 11:09] VITALS: BP 134/89
== END 2020-04-01 13:54 | DRG 384 ==
LOC: EMEROOARM 01:46 → 2ANU 01:46 → SUATTDRO 07:52 → 2ANU 08:58
PROVIDERS: ADMIT Family Medicine; ATTEND Family Medicine

== ENCOUNTER 2020-04-01 14:02 | Inpatient (IN) ==
[2020-04-01] MEDS ORDERED: MOM Conc 10 ML UD.LIQ PO PRN (15:44)
[2020-04-01] MEDS ORDERED: hydrOXYzine pamoate 25 MG CAPSULE PO PRN (15:44)
[2020-04-01] MEDS ORDERED: haloperidoL 5 MG TABLET PO PRN (15:44)
[2020-04-01] MEDS ORDERED: Mag Hydrox/Al Hydrox/Simeth 30 ML UDC PO PRN (15:44)
[2020-04-01] MEDS ORDERED: Haloperidol Lactate 5 MG/ML VIAL IM PRN (15:44)
[2020-04-01] MEDS ORDERED: *HR* LORazepam 1 MG TABLET PO PRN (15:44)
[2020-04-01] MEDS ORDERED: *HR* LORazepam 2 MG/ML VIAL IM PRN (15:44)
[2020-04-01] MEDS ORDERED: Divalproex (24 HR) 500 MG TABLET PO SCH (16:15)
[2020-04-01] MEDS: allopurinoL 100 MG TABLET PO SCH ×2 (17:57→22:06)
[2020-04-01] MEDS: Gabapentin 400 MG CAPSULE PO SCH ×2 (17:58→22:04)
[2020-04-01] MEDS ORDERED: Diclofenac Sodium (DR) 50 MG TABLET.DR PO SCH (21:00)
[2020-04-02] MEDS ORDERED: risperiDONE 1 MG TABLET PO SCH (09:00)
[2020-04-02] MEDS: Diclofenac Sodium (DR) 50 MG TABLET.DR PO SCH ×2 (09:56→21:51)
[2020-04-02] MEDS: Divalproex (24 HR) 500 MG TABLET PO SCH ×3 (09:57→22:14)
[2020-04-02] MEDS: Vitamin B Complex/Vit C/Vit E 1 EACH TABLET PO SCH (09:57)
[2020-04-02] MEDS: Folic Acid 1 MG TABLET PO SCH (09:58)
[2020-04-02] MEDS: Thiamine (B-1) 100 MG TABLET PO SCH (09:58)
[2020-04-02] MEDS: Loratadine 10 MG TABLET PO SCH (09:58)
[2020-04-02] MEDS: allopurinoL 100 MG TABLET PO SCH ×3 (09:59→22:14)
[2020-04-02] MEDS: Gabapentin 400 MG CAPSULE PO SCH ×3 (10:01→21:52)
[2020-04-02] MEDS: lisinopriL 20 MG TABLET PO SCH (10:01)
[2020-04-02] MEDS: Fluticasone Propionate Nasal 50 MCG/SPRAY BOTTLE NS SCH (10:03)
[2020-04-02] MEDS: Nicotine 2 MG GUM BC PRN ×2 (18:49→21:51)
[2020-04-02] MEDS: Acetaminophen 325 MG TABLET PO PRN (21:51)
[2020-04-02] MEDS: traZODone 50 MG TABLET PO PRN (21:52)
[2020-04-03] MEDS: Diclofenac Sodium (DR) 50 MG TABLET.DR PO SCH ×2 (08:23→21:03)
[2020-04-03] MEDS: Thiamine (B-1) 100 MG TABLET PO SCH (08:25)
[2020-04-03] MEDS: Gabapentin 400 MG CAPSULE PO SCH ×3 (08:25→21:02)
[2020-04-03] MEDS: Folic Acid 1 MG TABLET PO SCH (08:25)
[2020-04-03] MEDS: Vitamin B Complex/Vit C/Vit E 1 EACH TABLET PO SCH (08:26)
[2020-04-03] MEDS: Loratadine 10 MG TABLET PO SCH (08:26)
[2020-04-03] MEDS: Fluticasone Propionate Nasal 50 MCG/SPRAY BOTTLE NS SCH (08:26)
[2020-04-03] MEDS: allopurinoL 100 MG TABLET PO SCH ×3 (08:27→21:02)
[2020-04-03] MEDS: lisinopriL 20 MG TABLET PO SCH (08:27)
[2020-04-03] MEDS: Acetaminophen 325 MG TABLET PO PRN (10:18)
[2020-04-03] MEDS: Nicotine 2 MG GUM BC PRN ×4 (10:19→21:16)
[2020-04-03] MEDS: ARIPIPRAZOLE LAUROXIL IM SCH (17:26)
[2020-04-03] MEDS: hydrOXYzine pamoate 25 MG CAPSULE PO SCH (21:02)
[2020-04-04] MEDS: hydrOXYzine pamoate 25 MG CAPSULE PO SCH ×3 (08:22→20:39)
[2020-04-04] MEDS: Fluticasone Propionate Nasal 50 MCG/SPRAY BOTTLE NS SCH (08:22)
[2020-04-04] MEDS: allopurinoL 100 MG TABLET PO SCH ×3 (08:23→20:40)
[2020-04-04] MEDS: Diclofenac Sodium (DR) 50 MG TABLET.DR PO SCH ×2 (08:24→20:40)
[2020-04-04] MEDS: Folic Acid 1 MG TABLET PO SCH (08:25)
[2020-04-04] MEDS: Vitamin B Complex/Vit C/Vit E 1 EACH TABLET PO SCH (08:25)
[2020-04-04] MEDS: Thiamine (B-1) 100 MG TABLET PO SCH (08:25)
[2020-04-04] MEDS: Gabapentin 400 MG CAPSULE PO SCH ×3 (08:26→20:39)
[2020-04-04] MEDS: Loratadine 10 MG TABLET PO SCH (08:26)
[2020-04-04] MEDS: Nicotine 2 MG GUM BC PRN ×3 (08:27→20:40)
[2020-04-04] MEDS: Acetaminophen 325 MG TABLET PO PRN ×2 (09:53→20:40)
[2020-04-04] MEDS: ARIPIPRAZOLE LAUROXIL IM SCH (17:00)
[2020-04-04] MEDS: traZODone 50 MG TABLET PO PRN (20:40)
[2020-04-04] MEDS ORDERED: ARIPiprazole 5 MG TABLET PO SCH (21:00)
[2020-04-05] MEDS: Folic Acid 1 MG TABLET PO SCH (08:14)
[2020-04-05] MEDS: allopurinoL 100 MG TABLET PO SCH ×2 (08:14→15:11)
[2020-04-05] MEDS: Thiamine (B-1) 100 MG TABLET PO SCH (08:14)
[2020-04-05] MEDS: Diclofenac Sodium (DR) 50 MG TABLET.DR PO SCH (08:14)
[2020-04-05] MEDS: hydrOXYzine pamoate 25 MG CAPSULE PO SCH ×2 (08:15→15:11)
[2020-04-05] MEDS: Vitamin B Complex/Vit C/Vit E 1 EACH TABLET PO SCH (08:15)
[2020-04-05] MEDS: Gabapentin 400 MG CAPSULE PO SCH ×2 (08:15→15:11)
[2020-04-05] MEDS: Loratadine 10 MG TABLET PO SCH (08:16)
[2020-04-05] MEDS: Fluticasone Propionate Nasal 50 MCG/SPRAY BOTTLE NS SCH (08:16)
[2020-04-05] MEDS: Nicotine 2 MG GUM BC PRN ×2 (09:27→12:04)
[2020-04-05 10:49] VITALS: BP 115/77
[2020-04-05] MEDS ORDERED: ARIPIPRAZOLE LAUROXIL IM ONE (15:30)
[2020-04-05] MEDS: ARIPIPRAZOLE LAUROXIL IM SCH (17:12)
== END 2020-04-05 17:20 | disposition home or self-care (01) | DRG 776 ==
LOC: 1ANU 14:02
PROVIDERS: ADMIT Psychiatry & Neurology Forensic Psychiatry; ATTEND Psychiatry & Neurology Forensic Psychiatry

== ENCOUNTER 2021-01-27 17:04 | Inpatient (IN) ==
[2021-01-27] MEDS ORDERED: 0.9 % Sodium Chloride 1,000 ML IVC ONE (17:39)
[2021-01-27] MEDS ORDERED: Ondansetron 4 MG/2 ML VIAL IVP ONE (17:39)
[2021-01-27 18:10] LABS: Basophils % 0.3 %; Hematocrit 40.5 % (37.5-50.1); Hemoglobin 13.4 g/dL (12.9-16.9); Immature Granulocytes % 1.5 % (0-4); Lymphocytes % 27.3 %; Mean Corpuscular HGB Conc 33.1 g/dL (31.6-35.5); Mean Corpuscular Hemoglobin 27.1 pg (28.0-33.3); Mean Platelet Volume 10.2 fL (9.4-12.4); Monocytes # 0.5 K/mcL (0.0-1.3); Monocytes % 6.3 %; Neutrophils # 4.7 K/mcL (1.6-8.9); Platelet Count 182 K/mcL (140-400); Red Blood Count 4.94 M/mcL (4.19-5.50); Red Cell Distribution Width 13.9 % (11.5-14.5); Segmented Neutrophils % 64.6 %; White Blood Count 7.3 K/mcL (4.3-11.1)
[2021-01-27 18:33] LABS: Calcium 8.6 mg/dL (8.6-10.3); Potassium 4.6 mEq/L (3.5-5.1)
[2021-01-27 18:40] LABS: Bilirubin,Urine Negative (Negative); Blood,Urine Negative (Negative); Clarity,Urine Turbid (Clear); Color,Urine Yellow (Yellow); Glucose,Urine (UA) Normal (Normal); Hyaline Casts,Urine Many per lpf (None Seen); Ketones,Urine Negative (Negative); Leukocyte Esterase,Urine Moderate (Negative); Mucus,Urine Few per lpf (None-Few); Nitrite,Urine Negative (Negative); PH,Urine 5.5 pH Units (5.0-8.0); Protein,Urine 70 mg/dL (Neg-Trace); RBC,Urine 0-3 per hpf (0-3); Squamous Epithelial Cell,Urine Few per hpf (None-Few); Urobilinogen,Urine Normal (Normal)
[2021-01-27] MEDS ORDERED: Naloxone 0.4 MG/ML INJ IVP PRN (19:25)
[2021-01-27] MEDS ORDERED: Melatonin 3 MG TABLET PO PRN (19:25)
[2021-01-27] MEDS ORDERED: *HR* Promethazine 25 MG/ML VIAL IM PRN (19:25)
[2021-01-27] MEDS ORDERED: *HR* HYDROcodone/Acet 5/325 mg TABLET PO PRN (19:25)
[2021-01-27] MEDS ORDERED: Acetaminophen 325 MG TABLET PO PRN (19:25)
[2021-01-27] MEDS ORDERED: Ondansetron 4 MG/2 ML VIAL IVP PRN (19:25)
[2021-01-27] MEDS ORDERED: hydrOXYzine pamoate 25 MG CAPSULE PO PRN (19:27)
[2021-01-27] MEDS ORDERED: D5% in Water 1,000 ML IVC PRN (19:28)
[2021-01-27] MEDS ORDERED: *HR* Dextrose 50 % in Water (Vial) 50 ML VIAL IVP PRN (19:28)
[2021-01-27] MEDS ORDERED: Dextrose Gel 15 GM/37.5 ML TUBE PO PRN ×2 (19:28)
[2021-01-27 19:52] LABS: Albumin 4.2 g/dL (3.5-5.7); Albumin/Globulin Ratio 1.1 (1.1-2.2); Bilirubin,Direct 0.1 mg/dL (0.0-0.2); Bilirubin,Indirect 0.3 mg/dL (0.0-1.0); Bilirubin,Total 0.4 mg/dL (0.3-1.0); Globulin 3.9 g/dL (2.4-3.5); Total Protein 8.1 g/dL (6.4-8.9)
[2021-01-27] MEDS ORDERED: Insulin LISPRO 300 UNITS/3 ML VIAL SUBQ SCH (21:00)
[2021-01-27] MEDS: Ringers Solution, Lactated 1,000 ML IVC SCH (22:36)
[2021-01-27] MEDS: Benzonatate 100 MG CAPSULE PO PRN (23:34)
[2021-01-28] MEDS ORDERED: Remdesivir 200 MG in 0.9 % Sodium Chloride 100 ML IVPB ONE (03:00)
[2021-01-28] MEDS: Ringers Solution, Lactated 1,000 ML IVC SCH (04:07)
[2021-01-28] MEDS ORDERED: *HR* Enoxaparin 40 MG/0.4 ML SYRINGE SQ SCH ×3 (06:00→21:00)
[2021-01-28 06:28] VITALS: BP 106/62; PULSE 99; TEMP 97.8
[2021-01-28 07:14] LABS: INR 1.2; Prothrombin Time 13.9 Seconds (9.4-12.1)
[2021-01-28 07:47] LABS: Basophils % 0.3 %; Hematocrit 35.8 % (37.5-50.1); Hemoglobin 12.1 g/dL (12.9-16.9); Immature Granulocytes % 1.9 % (0-4); Lymphocytes # 0.8 K/mcL (0.6-4.6); Lymphocytes % 21.2 %; Mean Corpuscular HGB Conc 33.8 g/dL (31.6-35.5); Mean Corpuscular Hemoglobin 27.4 pg (28.0-33.3); Mean Platelet Volume 10.3 fL (9.4-12.4); Monocytes # 0.1 K/mcL (0.0-1.3); Monocytes % 2.6 %; Neutrophils # 2.8 K/mcL (1.6-8.9); Platelet Count 189 K/mcL (140-400); Red Blood Count 4.42 M/mcL (4.19-5.50); White Blood Count 3.8 K/mcL (4.3-11.1)
[2021-01-28] MEDS: Benzonatate 100 MG CAPSULE PO PRN (07:55)
[2021-01-28] MEDS: Insulin LISPRO 300 UNITS/3 ML VIAL SUBQ SCH ×3 (07:57→17:44)
[2021-01-28 08:06] LABS: Albumin 3.8 g/dL (3.5-5.7); Albumin/Globulin Ratio 1.2 (1.1-2.2); Bilirubin,Indirect 0.3 mg/dL (0.0-1.0); Bilirubin,Total 0.3 mg/dL (0.3-1.0); Globulin 3.2 g/dL (2.4-3.5)
[2021-01-28 08:21] LABS: Alanine Aminotransferase 66 Units/L (7-52); Albumin 3.8 g/dL (3.5-5.7); Albumin/Globulin Ratio 1.2 (1.1-2.2); Alkaline Phosphatase 22 Units/L (34-104); Aspartate Amino Transferase 66 Units/L (13-39); BUN/Creatinine Ratio 18 (6-26); Bilirubin,Total 0.3 mg/dL (0.3-1.0); Blood Urea Nitrogen 18 mg/dL (6-20); Calcium 8.4 mg/dL (8.6-10.3); Carbon Dioxide 22 mEq/L (23-29); Chloride 99 mEq/L (98-107); Globulin 3.1 g/dL (2.4-3.5); Glucose 256 mg/dL (70-105); Lactate Dehydrogenase 280 Units/L (140-271); Magnesium 1.4 mg/dL (1.6-2.6); Osmolality,Calculated 285 (280-300); Phosphorous 2.7 mg/dL (2.7-4.5); Potassium 5.4 mEq/L (3.5-5.1); Sodium 132 mEq/L (136-145); Total Protein 6.9 g/dL (6.4-8.9); eGFR For African Americans > 60 (> 60); eGFR For Non-African Americans > 60 (> 60)
[2021-01-28] MEDS ORDERED: Dexamethasone Sodium Phos/PF 10 MG/ML VIAL IVP SCH (09:00)
[2021-01-28 09:14] LABS: Ferritin > 1500 ng/mL (20-250)
[2021-01-28 09:43] LABS: C-Reactive Protein 168 mg/L (Less than 10)
[2021-01-28] MEDS ORDERED: SODIUM ZIRCONIUM CYCLOSILICATE 5 GM POWD.PACK PO ONE (10:54)
[2021-01-28] MEDS: Calcium Gluconate 1gm/50mL 1 GM/50 ML BAG IVPB SCH ×2 (13:05→14:22)
[2021-01-28] MEDS ORDERED: Fluticasone Propionate Nasal 50 MCG/SPRAY BOTTLE NS PRN (14:14)
[2021-01-28 16:14] VITALS: O2SAT 93
[2021-01-28] MEDS ORDERED: Insulin DETEMIR 100 UNIT/ML X5UNITS SUBQ SCH (21:00)
[2021-01-29] MEDS ORDERED: Remdesivir 100 MG in 0.9 % Sodium Chloride 100 ML IVPB SCH (03:00)
[2021-01-29] MEDS ORDERED: Loratadine 10 MG TABLET PO SCH (09:00)
== END 2021-01-28 18:43 | disposition left against medical advice (07) | DRG 137 ==
LOC: 2NENU 17:04 → EMEROOARM 17:04 → SUATTDRO 20:35 → 2NENU 21:21
PROVIDERS: ADMIT Internal Medicine; ATTEND Internal Medicine